=== PATIENT | male | born 1995 ===

== ENCOUNTER 2017-07-30 01:02 | Emergency (ER) | payer BC ==
[2017-07-30 01:23] VITALS: BP 129/80; PULSE 82; RESP 18; TEMP 97.5; O2SAT 98
[2017-07-30] MEDS ORDERED: Silver Nitrate Topical - Stick ONE (02:16)
[2017-07-30] MEDS ORDERED: Cellulose Hemostat 2X3 Sheet TP ONE (02:26)
[2017-07-30] MEDS ORDERED: Silver Nitrate Topical - Stick TOP ONE (02:26)
[2017-07-30] MEDS ORDERED: ceFAZolin 1 GM in Sodium Chloride 0.9% 100 ML IVPB STA (03:09)
[2017-07-30] MEDS ORDERED: Lidocaine 2% GEL TOP ONE (03:10)
--- NOTE | 2017-07-30 03:26 | ED PDOC ---
HPI: Wound Care - HPI Time Seen by Provider: 07/30/17 03:12 Chief Complaint (Nursing): Abnormal Skin Integrity Chief Complaint (Provider): wound care History Per: Patient Additional Complaint(s): 22 yo M in ED for eval for laceration to left 2nd finger tonight with razor blade on accident. tetanus is uptodate. admits to heavy bleeding not well controlled with pressure. dneies numbness or tingling to digit. Past Medical History Reviewed: Historical Data, Nursing Documentation, Vital Signs Vital Signs: Last Vital Signs Temp 97.5 F L 07/30/17 01:18 Pulse 82 07/30/17 01:18 Resp 18 07/30/17 01:18 BP 129/80 07/30/17 01:18 Pulse Ox 98 07/30/17 01:18 - Family History Family History: States: No Known Family Hx - Home Medications Home Medications: Ambulatory Orders Medication Instructions Recorded Cephalexin [cephalexin] 500 mg PO BID #20 cap 07/30/17 - Allergies Allergies/Adverse Reactions: Allergies Allergy/AdvReac Type Severity Reaction Status Date / Time seafood Allergy RASH Uncoded 07/30/17 01:18 Review of Systems ROS Statement: Except As Marked, All Systems Reviewed And Found Negative Constitutional: Negative for: Fever Musculoskeletal: Positive for: Hand Pain Physical Exam - Reviewed Nursing Documentation Reviewed: Yes Vital Signs Reviewed: Yes - Physical Exam Appears: Positive for: Well, Non-toxic, No Acute Distress Skin: Positive for: Normal Color, Warm, DRY Back: Positive for: Normal Inspection Extremity: Positive for: Other (left 2nd digit volar side laceration noted with avtive bleeding noted capillary cut with pulsating bleed. 2cm irregular shaped laceration with mild swelling FROM of digit. nuerovasc intact. ) Neurologic/Psych: Positive for: Alert, Oriented - ECG O2 Sat by Pulse Oximetry: 98 - Radiology X-Ray: Interpreted by [place] X-Ray Interpretation: No Acute Disease - Progress ED Course And Treament: pt was near syncope-placed on O2 and on cardiac rn. Procedure: Wound Repair - Time Performed Time Performed: 03:57 - Time Out Time Out: Side verified, Site verified, Patient ID confirmed, Sterile procedures obs. - Procedure Procedure: Wound Repair: left hand 2nd digit - Consent Obtained Consent obtained: Verbal - Performed by Performed by: Mid-level Provider - Indications Indication(s):: Laceration - Location Finger:: Left, Index Shape:: Linear, Curvilinear, Wedge Dimensions Length cm: 2cm Depth:: Subcutaneous fascia - Anesthetic Technique Anesthetic Technique: Regional block Local/Regional Anesthetic:: Lidocaine 2% - Wound Examination Wound Examination:: Ecchymosis, Other (capillary bleed noted-turniquet used to stop bleed and pressure-but not effective. silver nitrate was used to control bleeding and surgicel-bleeding controlled. ) - Debris Debris:: None - Irrigated Irrigated with ml of normal saline: 500cc - Complexity Complexity:: Intermediate (2 layer) - Wound repair method Sutures:: # (#5 5-0 absorbable sutures placed subq deep layer. no muscle invol noted. FROM of digit. ), Size (#13 5-0 nylon simple interrupted sutures placed. bleeding controlled. wound edges looks well. tinting noted of skin due to silver nitrate use-pt made aware of skin color changes and scaring. pt understrands and is in agrement. ) - Patient tolerated procedure Patient Tolerated Procedure:: Well Medical Decision Making Medical Decision Making: dx: laceration Pt given IV ancef in ER. states tetanus is uptodate. splint applied to digit will be d/c with abx and f.u with hand surgery. Disposition - Clinical Impression Clinical Impression: Laceration - Patient ED Disposition Is Patient to be Admitted: No Counseled Patient/Family Regarding: Studies Performed, Diagnosis, Need For Followup, Rx Given - Disposition Referrals: [facility] [Outside] Narendra Beckwith MD [Staff Provider] - Disposition: Routine/Home Disposition Time: 04:03 Condition: STABLE Additional Instructions: it is imperative you do the followin. keep wound dry 2. apply splint to finger to prevent movement of finger-otherwise sutures will come apart 3. DO NOT apply too much pressure to sutures-it will prevent healing 4. follow up with a plastic surgeon, above is one referred to you 5. take your antibiotics. 6. have your wound evaluated in 8-10 days. Prescriptions: Cephalexin [cephalexin] 500 mg PO BID #20 cap Instructions: Care For Your Stitches (ED), Laceration (ED), Finger Laceration ( ED) Forms: [employer] (Bengali)
[2017-07-30] MEDS ORDERED: Oxycodone/Acetaminophen 5/325 mg Tab PO STA (03:55)
--- NOTE | 2017-07-30 09:05 | RAD ---
PROCEDURE: Left Hand Radiographs. HISTORY: Laceration left index finger COMPARISON: None. FINDINGS: BONES: Normal. No fracture. JOINTS: Normal. No osteoarthritic changes. SOFT TISSUES: Soft tissue injury at the level of the proximal interphalangeal joint. No visulaized radiopaque/visualized foreign body. OTHER FINDINGS: None. IMPRESSION: Soft tissue swelling without acute articular or osseous abnormality.
== END 2017-07-30 05:02 | disposition home or self-care (01) ==
LOC: H.ER 01:02
DX: S61.211A Laceration without foreign body of left index finger without damage to nail, initial encounter (principal); W26.8XXA Contact with other sharp object(s), not elsewhere classified, initial encounter
CPT/HCPCS: 12001; 73130; 96374; 99285; J0690

== ENCOUNTER 2018-05-15 18:34 | Emergency (ER) | payer BC ==
[2018-05-15 19:04] VITALS: O2SAT 97
[2018-05-15] MEDS ORDERED: Albuterol 0.083% Inhal Sol (2.5 mg/3 mL) UD INH STA (19:13)
--- NOTE | 2018-05-15 19:21 | ED PDOC ---
HPI: CCC, URI, Sore Throat Chief Complaint (Provider): Cough, Cold, Congestion History Per: Patient History/Exam Limitations: no limitations Onset/Duration Of Symptoms: Days Current Symptoms Are (Timing): Still Present Location Of Pain: Headache Additional Complaint(s): 23 y/o male presents to the ED for complaints of 3 week history of cough productive of white sputum. States for past several days, the cough has become worse, and is now associated with a headache. Headache worsens with coughing. Patient also reports having some post-tussive vomiting and tactile fever. State his friends have similar symptoms. He has yet to see a primary doctor. He reports taking Tylenol and Mucinex without relief. Denies recent travel, hemoptysis, chest pain, sob, sore throat, head injury, neck pain/stiffness, or rash. <Luis Raman - Last Filed: 05/15/18 20:56> <Smith Hooper III - Last Filed: 05/20/18 13:37> Time Seen by Provider: 05/15/18 19:05 Chief Complaint (Nursing): Cough, Cold, Congestion Supervising Attending Note - Attestation: I have reviewed all pertinent clinical information, including history, physical exam and plan: Yes <Smith Hooper III - Last Filed: 05/20/18 13:37> Past Medical History Reviewed: Historical Data, Nursing Documentation, Vital Signs Vital Signs: Last Vital Signs Temp 98.3 F 05/15/18 18:58 Pulse 86 05/15/18 18:58 Resp 16 05/15/18 18:58 BP 142/79 05/15/18 18:58 Pulse Ox 97 05/15/18 18:58 - Family History Family History: States: No Known Family Hx <Luis Raman - Last Filed: 05/15/18 20:56> Vital Signs: Last Vital Signs Temp 99.4 F 05/15/18 21:04 Pulse 89 05/15/18 21:04 Resp 18 05/15/18 21:04 BP 129/72 05/15/18 21:04 Pulse Ox 97 05/15/18 21:04 <Smith Hooper III - Last Filed: 05/20/18 13:37> - Home Medications Home Medications: Ambulatory Orders Medication Instructions Recorded Cephalexin [cephalexin] 500 mg PO BID #20 cap 12/12/17 Albuterol HFA [Ventolin HFA 90 2 puff IH [id number] PRN #60 puff 05/15/18 mcg/actuation (8 g)] Azithromycin [Zithromax] 250 mg PO DAILY #6 tab 05/15/18 Benzonatate [Tessalon Perle] 1 - 2 cap PO Q8 PRN #15 capsule 05/15/18 - Allergies Allergies/Adverse Reactions: Allergies Allergy/AdvReac Type Severity Reaction Status Date / Time seafood Allergy RASH Uncoded 07/30/17 01:18 Review of Systems ROS Statement: Except As Marked, All Systems Reviewed And Found Negative Constitutional: Positive for: Fever (tactile) ENT: Negative for: Throat Pain Cardiovascular: Negative for: Chest Pain Respiratory: Positive for: Cough, Sputum. Negative for: Shortness of Breath, Hemoptysis Gastrointestinal: Positive for: Vomiting (post tussive). Negative for: Diarrhea Musculoskeletal: Negative for: Neck Pain Skin: Negative for: Rash Neurological: Positive for: Headache. Negative for: Weakness, Numbness, Dizziness <Luis Raman E - Last Filed: 05/15/18 20:56> Physical Exam - Reviewed Nursing Documentation Reviewed: Yes Vital Signs Reviewed: Yes - Physical Exam Appears: Positive for: Non-toxic, No Acute Distress Head Exam: Positive for: ATRAUMATIC, NORMOCEPHALIC Skin: Positive for: Normal Color, Warm, DRY Eye Exam: Positive for: Normal appearance ENT: Positive for: Normal ENT Inspection. Negative for: Pharyngeal Erythema, Tonsillar Exudate Neck: Positive for: Normal, Painless ROM, Supple Cardiovascular/Chest: Positive for: Regular Rate, Rhythm Respiratory: Positive for: Wheezing (Minimal expiratory wheezing bilterally). Negative for: Accessory Muscle Use, Rhonchi, Respiratory Distress Pulses-Radial (L): 2+ Pulses-Radial (R): 2+ Extremity: Positive for: Normal ROM. Negative for: Pedal Edema, Deformity Neurologic/Psych: Positive for: Alert, Oriented (x3) <Luis Raman E - Last Filed: 05/15/18 20:56> - ECG O2 Sat by Pulse Oximetry: 97 (RA) Pulse Ox Interpretation: Normal - Radiology X-Ray: Interpreted by Me (CXR) X-Ray Interpretation: No Acute Disease - Progress Re-evaluation Time: 20:25 (Headache and cough have improved. ) Condition: Re-examined, Improved <Luis Raman - Last Filed: 05/15/18 20:56> Medical Decision Making Medical Decision Making: Impression: productive cough, headache, post-tussive vomiting Initial Plan: --Chest x-ray --Albuterol nebulizer --Toradol 30 mg IM --Reassess after treatment Scribe Attestation: Documented by Avelina Villalobos, acting as a scribe for Luis Raman PA-C. Provider Scribe Attestation: All medical record entries made by the Scribe were at my direction and personally dictated by me. I have reviewed the chart and agree that the record accurately reflects my personal performance of the history, physical exam, medical decision making, and the department course for this patient. I have also personally directed, reviewed, and agree with the discharge instructions and disposition. <Luis Raman - Last Filed: 05/15/18 20:56> Disposition - Patient ED Disposition Is Patient to be Admitted: No - Disposition Disposition: Routine/Home Disposition Time: 20:26 <Luis Raman - Last Filed: 05/15/18 20:56> <Smith Hooper III - Last Filed: 05/20/18 13:37> - Clinical Impression Clinical Impression: Asthmatic bronchitis - Disposition Referrals: [facility] [Outside] Condition: IMPROVED Additional Instructions: CARMINE QUIÑONEZ, thank you for letting us take care of you today. Your provider was Smith Hooper III, DO and you were treated for HEADACHE, BACK PAIN. The emergency medical care you received today was directed at your acute symptoms. If you were prescribed any medication, please fill it and take as directed. It may take several days for your symptoms to resolve. Return to the Emergency Department if your symptoms worsen, do not improve, or if you have any other problems. Please contact your doctor or call one of the physicians/clinics you have been referred to that are listed on the Patient Visit Information form that is included in your discharge packet. Bring any paperwork you were given at discharge with you along with any medications you are taking to your follow up visit. Our treatment cannot replace ongoing medical care by a primary care provider outside of the emergency department. Thank you for allowing the [facility] team to be part of your care today. If you had an X-Ray or CT scan: A Radiologist will review the ED reading if any change in treatment is needed we will contact you. If you had a blood, urine, or wound culture: It will take several days for the results, if any change in treatment is needed we will contact you. If you had an STI test: It will take 48 hours for the results. Please call after 1 week if you have not heard back. Prescriptions: Albuterol HFA [Ventolin HFA 90 mcg/actuation (8 g)] 2 puff IH [id number] PRN #60 puff PRN Reason: Cough Azithromycin [Zithromax] 250 mg PO DAILY #6 tab Benzonatate [Tessalon Perle] 1 - 2 cap PO Q8 PRN #15 capsule PRN Reason: Cough Instructions: Acute Bronchitis, Adult (DC) Forms: [employer] (Dutch) - PA / MOTEL MAID / Resident Statement MD/DO has reviewed & agrees with the documentation as recorded. <Luis Raman E - Last Filed: 05/15/18 20:56>
[2018-05-15] MEDS ORDERED: Albuterol 0.083% Inhal Sol (2.5 mg/3 mL) UD ONE (19:32)
[2018-05-15 22:07] VITALS: BP 129/72; PULSE 89; RESP 18; TEMP 99.4
--- NOTE | 2018-05-16 11:11 | RAD ---
Date of service: 05/15/2018 HISTORY: cough COMPARISON: No prior. TECHNIQUE: Chest PA and lateral FINDINGS: LUNGS: No active pulmonary disease. PLEURA: No significant pleural effusion identified. No pneumothorax apparent. CARDIOVASCULAR: Normal. OSSEOUS STRUCTURES: No significant abnormalities. VISUALIZED UPPER ABDOMEN: Normal. OTHER FINDINGS: None. IMPRESSION: No active disease.
== END 2018-05-15 21:10 | disposition home or self-care (01) ==
LOC: H.ER 18:34
DX: J45.909 Unspecified asthma, uncomplicated (principal)
CPT/HCPCS: 71046; 94640; 96372; 99282; J1885